=== PATIENT | female | born 1950 | race Caucasian/White ===

== ENCOUNTER 2020-07-09 17:53 | Emergency (ER) | payer MEDICARE, OTHER ==
[~2020-07-09] VITALS: Ht 154.9 cm; Wt 62.3 kg
[2020-07-09] MEDS ORDERED: SYMB16INH INH (18:14)
[2020-07-09] MEDS ORDERED: VERA100C4 PO (18:14)
[2020-07-09] MEDS ORDERED: MONT10TA10 PO (18:14)
[2020-07-09] MEDS ORDERED: GABA-282 PO (18:14)
[2020-07-09] MEDS ORDERED: EZET10TA21 PO (18:14)
[2020-07-09] MEDS ORDERED: DIVA250T67 PO (18:14)
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
[2020-07-09] MEDS ORDERED: CYCL5TAB PO (19:48)
[2020-07-09 20:19] VITALS: BP 144/73
== END 2020-07-09 20:21 | disposition home or self-care (01) ==
LOC: M ED 17:53 → EDBD 17:53 → M ED 20:21
DX: S16.1XXA Strain of muscle, fascia and tendon at neck level, initial encounter (principal); V49.59XA Passenger injured in collision with other motor vehicles in traffic accident, initial encounter; Y92.410 Unspecified street and highway as the place of occurrence of the external cause; I10 Essential (primary) hypertension; Z79.899 Other long term (current) drug therapy; Z88.1 Allergy status to other antibiotic agents; Z88.2 Allergy status to sulfonamides